=== PATIENT | female | born 2000 | race Caucasian/White ===

== ENCOUNTER 2023-10-02 10:15 | Inpatient (IN) ==
[2023-10-02] MEDS ORDERED: Lidocaine 1% VIAL 10 MG/ML 30 ML VIAL INJ PRN (11:09)
[2023-10-02] MEDS ORDERED: Buffered Lidocaine 1% SYRIN 1 ml INTRADERM ONE (11:09)
[2023-10-02] MEDS ORDERED: Lactated Ringers 1000 ml BAG 1,000 ML IV ONE (11:09)
[2023-10-02] MEDS ORDERED: Dinoprostone 10 MG VAG.SUPP VAGINAL ONE (11:14)
[2023-10-02] MEDS ORDERED: Lactated Ringers 1000 ml BAG 1,000 ML IV SCH (12:00)
[2023-10-02 13:43] LABS: Urine Benzodiazepine Screen None Detected (None Detect); Urine Opiates Screen None Detected (None Detect)
[2023-10-03] MEDS ORDERED: miSOPROStol 100 mcg TAB PO ONE (05:45)
[2023-10-03] MEDS ORDERED: Oxytocin in LR 20,000 MILLI.UNIT/1,000 ML BAG IV SCH (11:20)
[2023-10-03 11:33] LABS: ABS Eosinophils 0.1 10^3/uL (0.0-0.5); ABS Lymphocytes 1.4 10^3/uL (1.0-4.8); ABS Monocytes 0.8 10^3/uL (0.0-0.9); ABS Neutrophils 6.5 10^3/uL (1.5-7.6); ABS Nucleated RBC 0.01 10^3/ul; Eosinophil % 0.6 %; Hematocrit 35.3 % (35-45); Hemoglobin 11.9 g/dL (11.5-14.3); Lymphocyte % 15.7 %; Mean Corpuscular Hemoglobin 28.1 pg (27-33); Mean Corpuscular Hgb Conc 33.7 g/dL (31-36); Mean Corpuscular Volume 83.4 fL (80-97); Nucleated Red Blood Cells % 0.1 %/100WBC (0.0-0.8); Platelet Count 198 10^3/uL (150-450); Red Blood Count 4.23 10^6/uL (3.63-4.92); Red Cell Distribution Width 17.5 % (12-17); White Blood Count 8.7 10^3/uL (3.8-11.8)
[2023-10-03] MEDS ORDERED: Promethazine INJ(RESTRICTED) 25 MG/ML 1 ml VIAL IV PRN (20:02)
[2023-10-03] MEDS ORDERED: Morphine 10 MG/ML VIAL (1 ml) IV ONE (20:02)
[2023-10-03] MEDS ORDERED: OBEPIDURAL (200 ML) 0 ML EPIDURAL ONE (23:25)
[2023-10-03] MEDS ORDERED: Lidocaine 1.5% EPI 1:200,000 30 ML SDV ONE (23:25)
[2023-10-04] MEDS ORDERED: OBEPIDURAL (200 ML) 200 ML EPIDURAL ONE (00:54)
[2023-10-04] MEDS ORDERED: Lidocaine 1.5% EPI 1:200,000 30 ML SDV ONE (00:54)
[2023-10-04] MEDS ORDERED: Lactated Ringers 1000 ml BAG 500 ML IV PRN ×2 (01:57)
[2023-10-04] MEDS ORDERED: Famotidine IV 10 MG/ML 2 ml VIAL (20 mg) IV PRN (01:57)
[2023-10-04] MEDS ORDERED: Lactated Ringers 1000 ml BAG 1,000 ML IV ONE (01:57)
[2023-10-04] MEDS ORDERED: Phenylephrine 40 mcg/mL 10mL (400mcg) SYRINGE IV PUSH PRN ×2 (01:57)
[2023-10-04] MEDS ORDERED: Sodium Citrate/Citric Acid LIQ 15 ML UDC PO PRN (01:57)
[2023-10-04] MEDS ORDERED: OBEPIDURAL (200 ML) 200 ML EPIDURAL SCH (02:00)
[2023-10-04] MEDS ORDERED: Lactated Ringers 1000 ml BAG 1,000 ML IV SCH ×2 (02:00→12:00)
[2023-10-04 05:58] LABS: Urine Appearance Clear; Urine Bilirubin Negative (Negative); Urine Blood Negative (Negative); Urine Color Yellow; Urine Glucose Negative (Negative); Urine Ketones Trace (Negative); Urine Nitrite Negative (Negative); Urine Protein Negative (Negative); Urine Specific Gravity 1.019 (1.002-1.030); Urine Urobilinogen Negative (Negative)
[2023-10-04] MEDS ORDERED: Lidocaine 2% JELLY 6 ML Topical TOPICAL ONE (10:33)
[2023-10-04] MEDS ORDERED: Dibucaine 1% OINT 28.35 GM TUBE PR PRN (11:28)
[2023-10-04] MEDS ORDERED: Witch Hazel PAD JAR TOPICAL PRN (11:28)
[2023-10-04] MEDS ORDERED: Oxytocin in LR 20,000 MILLI.UNIT/1,000 ML BAG IV SCH (11:30)
[2023-10-04] MEDS ORDERED: Oxytocin in LR 20,000 MILLI.UNIT/1,000 ML BAG IV ONE (11:31)
[2023-10-05 08:43] LABS: ABS Eosinophils 0.1 10^3/uL (0.0-0.5); ABS Monocytes 0.6 10^3/uL (0.0-0.9); ABS Neutrophils 6.5 10^3/uL (1.5-7.6); Eosinophil % 1.4 %; Hematocrit 28.5 % (35-45); Hemoglobin 9.6 g/dL (11.5-14.3); Lymphocyte % 21.5 %; Mean Corpuscular Hemoglobin 28.6 pg (27-33); Mean Corpuscular Hgb Conc 33.8 g/dL (31-36); Mean Corpuscular Volume 84.6 fL (80-97); Mean Platelet Volume 8.1 fL (7.5-11.2); Platelet Count 162 10^3/uL (150-450); Red Blood Count 3.38 10^6/uL (3.63-4.92); Red Cell Distribution Width 18.3 % (12-17); White Blood Count 9.3 10^3/uL (3.8-11.8)
[2023-10-06 08:06] VITALS: BP 110/64
== END 2023-10-06 11:40 | disposition home or self-care (01) | DRG 560 ==
LOC: MCHOBOUT 10:15 → MCHOB 11:04
PROVIDERS: ADMIT Registered Nurse; ATTEND Midwife